=== PATIENT | female | born 1985 | race African-American/Black ===

== ENCOUNTER 2016-09-13 12:34 | Emergency (ER) | payer MEDICARE, MEDICAID ==
[2016-09-13] MEDS ORDERED: Triple Antibiotic Oint 1 GM Packet ONE (13:06)
== END 2016-09-13 13:30 | disposition home or self-care (01) ==
LOC: MADERS 12:34
DX: T24.201A Burn of second degree of unspecified site of right lower limb, except ankle and foot, initial encounter (principal); I10 Essential (primary) hypertension; E10.9 Type 1 diabetes mellitus without complications; Z79.4 Long term (current) use of insulin; Z79.899 Other long term (current) drug therapy; X19.XXXA Contact with other heat and hot substances, initial encounter
CPT/HCPCS: 99283

== ENCOUNTER 2017-06-20 14:56 | Emergency (ER) | payer MEDICARE, MEDICAID ==
[2017-06-20 15:32] LABS: Bilirubin Negative (Negative); Blood, Urine Trace (Negative); Clarity Cloudy (Clear); Glucose, Urine (Dipstick) >=1000 mg/dL (Negative); Leukocyte Negative (Negative); Nitrite Negative (Negative); Protein, Urine (Dipstick) > or equal to 300 mg/dL (Neg-Trace); Urobilinogen 0.2 mg/dL (0.2-1.0)
[2017-06-20 15:41] LABS: RBC/HPF 0-3 HPF (0-3); Squamous Epithelial 21-50 HPF (0-3)
[2017-06-20 15:42] LABS: Bacteria/HPF 3+ HPF (None Seen); Yeast-All Forms 1+ HPF (None Seen)
[2017-06-20] MEDS ORDERED: Ciprofloxacin 500 MG TAB ONE (15:42)
== END 2017-06-20 15:40 | disposition home or self-care (01) ==
LOC: MADERS 14:56
DX: N39.0 Urinary tract infection, site not specified (principal); E10.9 Type 1 diabetes mellitus without complications; I10 Essential (primary) hypertension; Z79.899 Other long term (current) drug therapy
CPT/HCPCS: 81003; 81015; 87077; 87086; 87186; 99283

== ENCOUNTER 2017-07-06 10:35 | Emergency (ER) | payer MEDICARE, MEDICAID ==
[2017-07-06 11:15] LABS: Bilirubin Negative (Negative); Blood, Urine Small (Negative); Glucose, Urine (Dipstick) >=1000 mg/dL (Negative); Leukocyte Negative (Negative); Nitrite Negative (Negative); Protein, Urine (Dipstick) > or equal to 300 mg/dL (Neg-Trace); Specific Gravity, Urine 1.015 (1.005-1.030); Urobilinogen 0.2 mg/dL (0.2-1.0); pH, Urine 5.5 (5.0-9.0)
[2017-07-06 11:24] LABS: Clarity Slightly Cloudy (Clear); RBC/HPF 0-3 HPF (0-3); WBC/HPF 0-3 HPF (0-3)
[2017-07-06 11:25] LABS: Bacteria/HPF 1+ HPF (None Seen); Yeast-All Forms 3+ HPF (None Seen)
[2017-07-06 11:37] LABS: #Basophils 0.1 thou/uL (0.0-0.2); #Eosinphils 0.4 thou/uL (0.0-0.7); #Lymphocytes 1.1 thou/uL (1.20-3.40); #Monocytes 0.5 thou/uL (0.11-0.59); #Neutrophils 3.8 thou/uL (1.40-6.50); %Eosinophils 6.4 % (0.0-10.0); %Lymphocytes 19.2 % (21.0-51.0); %Monocytes 8.6 % (0.0-10.0); %Neutrophils 63.9 % (42.0-75.0); Hemoglobin 11.7 g/dL (12.0-16.0); Mean Corpuscular HGB CONC 32.2 g/dL (32.0-36.0); Mean Corpuscular Hemoglobin 28.6 pg (27.0-31.0); Mean Corpuscular Volume 88.7 fl (81.0-99.0); Mean Platelet Volume 6.5 fL (7.4-10.4); Platelet Count 292 thou/uL (130-400); RBC Distribution Width 14.2 % (11.5-14.5); Red Blood Cell (RBC) Count 4.09 mill/uL (4.20-5.40); White Blood Cell (WBC) Count 5.9 thou/uL (4.8-10.8)
[2017-07-06] MEDS ORDERED: Benzonatate 100 MG CAP ONE (11:38)
[2017-07-06 11:51] LABS: ALT (SGPT) 23 U/L (8-55); AST (SGOT) 15 U/L (5-34); Albumin 3.4 g/dL (3.5-5.0); Alkaline Phosphatase 91 U/L (40-150); Anion Gap 16 mmol/L (10-20); BUN (Urea Nitrogen) 16 mg/dL (7.0-18.7); Bilirubin, Total 0.3 mg/dL (0.2-1.2); Calc. Creatinine Clearance 0 mL/min (70-130); Calcium 9.1 mg/dL (7.8-10.44); Carbon Dioxide 23 mmol/L (22-29); Chloride 102 mmol/L (98-107); Estimated GFR-MDRD 42; Globulin 3.9 g/dL (2.4-3.5); Glucose 423 mg/dL (70-105); Protein, Total 7.3 g/dL (6.0-8.3); Sodium 137 mmol/L (136-145)
== END 2017-07-06 12:03 | disposition home or self-care (01) ==
LOC: MADERS 10:35
DX: J06.9 Acute upper respiratory infection, unspecified (principal); E10.22 Type 1 diabetes mellitus with diabetic chronic kidney disease; N18.9 Chronic kidney disease, unspecified; Z79.4 Long term (current) use of insulin; Z79.899 Other long term (current) drug therapy
CPT/HCPCS: 36416; 80053; 81003; 81015; 85025; 99284

== ENCOUNTER 2017-07-07 11:33 | Emergency (ER) | payer MEDICARE, MEDICAID ==
[2017-07-07] MEDS ORDERED: Silver Sulfadiazine 1% Cream 50 GM JAR ONE (11:49)
== END 2017-07-07 12:05 | disposition home or self-care (01) ==
LOC: MADERS 11:33
DX: T24.201A Burn of second degree of unspecified site of right lower limb, except ankle and foot, initial encounter (principal); E10.9 Type 1 diabetes mellitus without complications; I10 Essential (primary) hypertension; X08.8XXA Exposure to other specified smoke, fire and flames, initial encounter
CPT/HCPCS: 99283

== ENCOUNTER 2017-09-04 08:29 | Emergency (ER) | payer MEDICARE, MEDICAID ==
[2017-09-04] MEDS ORDERED: Labetalol HCl 100 MG/20 ML VIAL ONE (09:05)
[2017-09-04 09:49] LABS: Hemoglobin 10.6 g/dL (12.0-16.0); Mean Corpuscular HGB CONC 32.3 g/dL (32.0-36.0); Mean Corpuscular Hemoglobin 28.2 pg (27.0-31.0); Mean Corpuscular Volume 87.4 fL (81.0-99.0); RBC Distribution Width 13.6 % (11.5-14.5); Red Blood Cell (RBC) Count 3.77 mill/uL (4.20-5.40); White Blood Cell (WBC) Count 8.5 thou/uL (4.8-10.8)
[2017-09-04 09:50] LABS: #Basophils 0.1 thou/uL (0.0-0.2); #Eosinphils 0.1 thou/uL (0.0-0.7); #Lymphocytes 1.1 thou/uL (1.20-3.40); #Monocytes 0.3 thou/uL (0.11-0.59); %Basophils 0.6 % (0.0-1.0); %Eosinophils 0.8 % (0.0-10.0); %Lymphocytes 12.5 % (21.0-51.0); %Monocytes 3.2 % (0.0-10.0); %Neutrophils 82.9 % (42.0-75.0); Platelet Count 295 thou/uL (130-400)
[2017-09-04 09:56] LABS: ALT (SGPT) 16 U/L (8-55); AST (SGOT) 16 U/L (5-34); Albumin 3.5 g/dL (3.5-5.0); Alkaline Phosphatase 76 U/L (40-150); Anion Gap 16 mmol/L (10-20); BUN (Urea Nitrogen) 18 mg/dL (7.0-18.7); Bilirubin, Total 0.3 mg/dL (0.2-1.2); Calc. Creatinine Clearance 0 mL/min (70-130); Carbon Dioxide 22 mmol/L (22-29); Chloride 105 mmol/L (98-107); Estimated GFR-MDRD 47; Globulin 3.5 g/dL (2.4-3.5); Glucose 173 mg/dL (70-105); Potassium 3.5 mmol/L (3.5-5.1); Sodium 139 mmol/L (136-145)
[2017-09-04 10:16] LABS: Bilirubin Negative (Negative); Blood, Urine Trace (Negative); Clarity Slightly Cloudy (Clear); Glucose, Urine (Dipstick) 500 mg/dL (Negative); Leukocyte Negative (Negative); Nitrite Negative (Negative); Protein, Urine (Dipstick) > or equal to 300 mg/dL (Neg-Trace); RBC/HPF 0-3 HPF (0-3); Urobilinogen 0.2 mg/dL (0.2-1.0)
[2017-09-04 10:17] LABS: Bacteria/HPF 2+ HPF (None Seen)
== END 2017-09-04 12:15 | disposition home or self-care (01) ==
LOC: MADERS 08:29
DX: E10.649 Type 1 diabetes mellitus with hypoglycemia without coma (principal); I10 Essential (primary) hypertension
CPT/HCPCS: 36416; 80053; 81001; 85025; 87086; 96374; 96375; 36415-59; J1610

== ENCOUNTER → 2017-10-26 | Emergency (ER) | payer MEDICARE, MEDICAID ==
[~2017-10-26] MED LIST: Phenazopyridine HCl 97.5 MG TABLET ONE; Sulfameth/Trimethoprim DS 800-160mg TAB ONE
[2017-10-26 09:55] LABS: Bilirubin Negative (Negative); Blood, Urine Moderate (Negative); Clarity Cloudy (Clear); Glucose, Urine (Dipstick) 500 mg/dL (Negative); Leukocyte Small (Negative); Nitrite Negative (Negative); Protein, Urine (Dipstick) > or equal to 300 mg/dL (Neg-Trace); Urobilinogen 0.2 mg/dL (0.2-1.0); pH, Urine 5.5 (5.0-9.0)
[2017-10-26 10:00] LABS: Pregnancy Test - Urine (BHCG) Negative (Negative); Pregu Control Background? CLEAR/WHITE (CLR/WHITE); Pregu Control Bar Appear? YES (CONTROL BAR)
[2017-10-26 10:05] LABS: Bacteria/HPF 2+ HPF (None Seen)
== END ==
LOC: MADERS 09:03
DX: N39.0 Urinary tract infection, site not specified (principal); E10.9 Type 1 diabetes mellitus without complications; I10 Essential (primary) hypertension; Z79.899 Other long term (current) drug therapy
CPT/HCPCS: 81001; 81025; 87077; 87086; 87186; 99283

== ENCOUNTER 2018-02-03 14:30 | Emergency (ER) | payer MEDICARE, MEDICAID ==
[2018-02-03] MEDS ORDERED: Lisinopril 10 MG TAB ONE (14:57)
== END 2018-02-03 15:04 | disposition home or self-care (01) ==
LOC: MADERS 14:30
DX: E10.40 Type 1 diabetes mellitus with diabetic neuropathy, unspecified (principal); G62.9 Polyneuropathy, unspecified; I10 Essential (primary) hypertension; Z79.4 Long term (current) use of insulin; Z79.891 Long term (current) use of opiate analgesic
CPT/HCPCS: 99283

== ENCOUNTER 2018-03-19 12:51 | Emergency (ER) | payer MEDICARE, MEDICAID | END 2018-03-19 13:19 | disposition home or self-care (01) | LOC: MADERS 12:51 | DX: S93.401A Sprain of unspecified ligament of right ankle, initial encounter (principal); I10 Essential (primary) hypertension; E10.40 Type 1 diabetes mellitus with diabetic neuropathy, unspecified; Z79.899 Other long term (current) drug therapy; X58.XXXA Exposure to other specified factors, initial encounter | CPT/HCPCS: 99283 ==

== ENCOUNTER 2018-04-18 18:15 | Emergency (ER) | payer MEDICARE, MEDICAID ==
[2018-04-18] MEDS ORDERED: cloNIDine 0.1 MG TAB ONE (18:57)
== END 2018-04-18 20:02 | disposition home or self-care (01) ==
LOC: MADERS 18:15
DX: I10 Essential (primary) hypertension (principal); E10.9 Type 1 diabetes mellitus without complications; Z79.899 Other long term (current) drug therapy
CPT/HCPCS: 99283

== ENCOUNTER 2018-10-26 13:48 | Emergency (ER) | payer MEDICARE, OTHER ==
[2018-10-26] MEDS ORDERED: Ibuprofen 600 MG TAB ONE (14:07)
== END 2018-10-26 15:10 | disposition home or self-care (01) ==
LOC: MADERS 13:48
DX: B34.9 Viral infection, unspecified (principal); E10.65 Type 1 diabetes mellitus with hyperglycemia; I10 Essential (primary) hypertension; Z79.899 Other long term (current) drug therapy
CPT/HCPCS: 36416; 87804; 99283

== ENCOUNTER 2018-11-06 21:28 | Emergency (ER) | payer MEDICARE, OTHER ==
[2018-11-06] MEDS ORDERED: cloNIDine 0.1 MG TAB ONE (21:52)
[2018-11-06 22:17] LABS: Bilirubin Negative (Negative); Blood, Urine Small (Negative); Clarity Cloudy (Clear); Glucose, Urine (Dipstick) 250 mg/dL (Negative); Leukocyte Moderate (Negative); Nitrite Negative (Negative); Protein, Urine (Dipstick) > or equal to 300 mg/dL (Neg-Trace); Urobilinogen 0.2 mg/dL (0.2-1.0)
[2018-11-06 22:18] LABS: ALT (SGPT) 26 U/L (8-55); AST (SGOT) 26 U/L (5-34); Albumin 3.7 g/dL (3.5-5.0); Alkaline Phosphatase 96 U/L (40-150); Anion Gap 14 mmol/L (10-20); BUN (Urea Nitrogen) 19 mg/dL (7.0-18.7); Bilirubin, Total 0.3 mg/dL (0.2-1.2); Calc. Creatinine Clearance 0 mL/min (70-130); Calcium 9.2 mg/dL (7.8-10.44); Carbon Dioxide 24 mmol/L (22-29); Chloride 106 mmol/L (98-107); Estimated GFR-MDRD 30; Globulin 3.4 g/dL (2.4-3.5); Glucose 160 mg/dL (70-105); Potassium 4.4 mmol/L (3.5-5.1); Protein, Total 7.1 g/dL (6.0-8.3); Sodium 140 mmol/L (136-145)
[2018-11-06 22:18] LABS: Pregnancy Test - Urine (BHCG) Negative (Negative); Pregu Control Background? CLEAR/WHITE (CLR/WHITE); Pregu Control Bar Appear? YES (CONTROL BAR)
[2018-11-06 22:20] LABS: #Basophils 0.1 thou/uL (0.0-0.2); #Eosinphils 0.5 thou/uL (0.0-0.7); #Lymphocytes 2.1 thou/uL (1.20-3.40); #Monocytes 0.8 thou/uL (0.11-0.59); #Neutrophils 5.2 thou/uL (1.40-6.50); %Eosinophils 5.4 % (0.0-10.0); %Lymphocytes 24.4 % (21.0-51.0); %Monocytes 9.1 % (0.0-10.0); %Neutrophils 60.2 % (42.0-75.0); Hemoglobin 9.1 g/dL (12.0-16.0); Hypochromia SLIGHT = 6-15 cells (100X) (0-5/hpf); MDiff Complete? YES; Mean Corpuscular HGB CONC 31.4 g/dL (32.0-36.0); Mean Corpuscular Hemoglobin 24.6 pg (27.0-31.0); Mean Corpuscular Volume 78.3 fL (78.0-98.0); Microcytosis SLIGHT = 6-15 cells (100X) (0-5/hpf); Platelet Count 278 thou/uL (130-400); Platelet Morphology Comment Appears Adequate; RBC Distribution Width 18.3 % (11.5-14.5); RBC Morphology Abnormal; Red Blood Cell (RBC) Count 3.69 mill/uL (4.20-5.40); White Blood Cell (WBC) Count 8.6 thou/uL (4.8-10.8)
[2018-11-06 22:22] LABS: Bacteria/HPF 4+ HPF (None Seen)
== END 2018-11-06 22:51 | disposition home or self-care (01) ==
LOC: MADERS 21:28
DX: I10 Essential (primary) hypertension (principal); D63.1 Anemia in chronic kidney disease; E10.22 Type 1 diabetes mellitus with diabetic chronic kidney disease; E10.40 Type 1 diabetes mellitus with diabetic neuropathy, unspecified; Z79.899 Other long term (current) drug therapy
CPT/HCPCS: 36415; 80053; 81003; 81015; 81025; 85025; 99283

== ENCOUNTER 2018-11-22 13:16 | Outpatient (CLI) | payer MEDICARE, OTHER ==
[2018-11-22 21:51] LABS: Creatinine, Urine 38.23 mg/dL (47-110)
[2018-11-24 15:14] LABS: Kappa Lambda Light Chain Ratio 1.59 (0.26-1.65); Kappa Light Chains 56.7 mg/L (3.3-19.4); Lambda Light Chain 35.7 mg/L (5.7-26.3)
== END 2018-11-22 13:17 | disposition home or self-care (01) ==
LOC: MADLAB 13:16
PROVIDERS: ATTEND Internal Medicine
DX: R80.1 Persistent proteinuria, unspecified (principal)
CPT/HCPCS: 36415; 82570; 83883; 84156; 86334; 86335

== ENCOUNTER 2019-03-01 17:18 | Emergency (ER) | payer MEDICARE, OTHER ==
[2019-03-01 17:59] LABS: Bilirubin Negative (Negative); Blood, Urine Trace (Negative); Clarity Slightly Cloudy (Clear); Glucose, Urine (Dipstick) 100 mg/dL (Negative); Leukocyte Negative (Negative); Nitrite Positive (Negative); Protein, Urine (Dipstick) > or equal to 300 mg/dL (Neg-Trace); Urobilinogen 0.2 mg/dL (Less than 2)
[2019-03-01 18:04] LABS: Bacteria/HPF 2+ HPF (None Seen)
[2019-03-01 18:05] LABS: Pregnancy Test - Urine (BHCG) Negative (Negative); Pregu Control Background? CLEAR/WHITE (CLR/WHITE); Pregu Control Bar Appear? YES (CONTROL BAR); Specific Gravity 1.015 (1.002-1.036)
== END 2019-03-01 18:42 | disposition home or self-care (01) ==
LOC: MADERS 17:18
DX: N30.00 Acute cystitis without hematuria (principal); I10 Essential (primary) hypertension; E13.9 Other specified diabetes mellitus without complications; Z79.4 Long term (current) use of insulin; Z79.899 Other long term (current) drug therapy
CPT/HCPCS: 81003; 81015; 81025; 99283

== ENCOUNTER 2019-07-12 08:58 | Emergency (ER) | payer MEDICARE, OTHER ==
[2019-07-12] MEDS ORDERED: Ibuprofen 600 MG TAB ONE (09:27)
== END 2019-07-12 09:40 | disposition home or self-care (01) ==
LOC: MADERS 08:58
DX: S00.411A Abrasion of right ear, initial encounter (principal); J06.9 Acute upper respiratory infection, unspecified; I10 Essential (primary) hypertension; E13.40 Other specified diabetes mellitus with diabetic neuropathy, unspecified; Z79.4 Long term (current) use of insulin; X58.XXXA Exposure to other specified factors, initial encounter
CPT/HCPCS: 99282

== ENCOUNTER 2019-07-13 14:59 | Emergency (ER) | payer MEDICARE, OTHER | END 2019-07-13 16:04 | disposition home or self-care (01) | LOC: MADERS 14:59 | DX: J06.9 Acute upper respiratory infection, unspecified (principal); M79.10 Myalgia, unspecified site; I10 Essential (primary) hypertension; E11.40 Type 2 diabetes mellitus with diabetic neuropathy, unspecified; Z79.4 Long term (current) use of insulin; Z79.899 Other long term (current) drug therapy | CPT/HCPCS: 99281 ==

== ENCOUNTER 2019-07-25 13:45 | Emergency (ER) | payer MEDICARE, OTHER ==
[2019-07-25] MEDS ORDERED: Dexamethasone 4 MG TAB ONE (15:58)
== END 2019-07-25 16:06 | disposition home or self-care (01) ==
LOC: MADERS 13:45
DX: J02.9 Acute pharyngitis, unspecified (principal); I10 Essential (primary) hypertension; E11.40 Type 2 diabetes mellitus with diabetic neuropathy, unspecified; Z79.4 Long term (current) use of insulin; Z79.899 Other long term (current) drug therapy
CPT/HCPCS: 36416; 87081; 87430; 99283; J8540

== ENCOUNTER 2019-08-13 12:10 | Emergency (ER) | payer MEDICARE, OTHER | END 2019-08-13 13:30 | disposition left against medical advice (07) | LOC: MADERS 12:10 | DX: Z53.21 Procedure and treatment not carried out due to patient leaving prior to being seen by health care provider (principal) ==

== ENCOUNTER 2019-08-21 11:21 | Emergency (ER) | payer MEDICARE, OTHER | END 2019-08-21 12:15 | disposition home or self-care (01) | LOC: MADERS 11:21 | DX: S90.821A Blister (nonthermal), right foot, initial encounter (principal); E11.9 Type 2 diabetes mellitus without complications; I10 Essential (primary) hypertension; Z79.4 Long term (current) use of insulin; Z79.899 Other long term (current) drug therapy | CPT/HCPCS: 99283 ==

== ENCOUNTER 2019-09-13 14:38 | Emergency (ER) | payer MEDICARE, OTHER ==
[2019-09-13] MEDS ORDERED: cloNIDine 0.1mg/24 Hour PATCH ONE (15:04)
[2019-09-13] MEDS ORDERED: Gabapentin 100 MG CAP ONE (15:04)
[2019-09-13] MEDS ORDERED: cloNIDine 0.1 MG TAB ONE (15:05)
== END 2019-09-13 15:25 | disposition home or self-care (01) ==
LOC: MADERS 14:38
DX: G62.9 Polyneuropathy, unspecified (principal); I10 Essential (primary) hypertension; E11.9 Type 2 diabetes mellitus without complications; Z79.4 Long term (current) use of insulin; Z79.899 Other long term (current) drug therapy
CPT/HCPCS: 99283

== ENCOUNTER 2019-11-13 21:32 | Emergency (ER) | payer MEDICARE, OTHER | END 2019-11-13 22:13 | disposition home or self-care (01) | LOC: MADERS 21:32 | DX: S91.211A Laceration without foreign body of right great toe with damage to nail, initial encounter (principal); I10 Essential (primary) hypertension; E11.40 Type 2 diabetes mellitus with diabetic neuropathy, unspecified; Z79.4 Long term (current) use of insulin; Z79.899 Other long term (current) drug therapy; X58.XXXA Exposure to other specified factors, initial encounter | CPT/HCPCS: 99283 ==

== ENCOUNTER 2019-12-09 13:16 | Emergency (ER) | payer MEDICARE, OTHER ==
[2019-12-09 14:52] LABS: Bilirubin Negative (Negative); Blood, Urine Moderate (Negative); Clarity Slightly Cloudy (Clear); Glucose, Urine (Dipstick) 500 mg/dL (Negative); Leukocyte Small (Negative); Nitrite Negative (Negative); Protein, Urine (Dipstick) > or equal to 300 mg/dL (Neg-Trace); Urobilinogen 0.2 mg/dL (Less than 2)
[2019-12-09 14:55] LABS: Bacteria/HPF 4+ HPF (None Seen); Squamous Epithelial 0-3 HPF (0-3); WBC/HPF Greater Than 50 HPF (0-3)
[2019-12-09] MEDS ORDERED: Lidocaine 1% 20 ML MDV ONE (15:15)
[2019-12-09] MEDS ORDERED: cefTRIAXone\\ROCEPHIN 1 GM VIAL ONE (15:15)
[2019-12-09] MEDS ORDERED: HYDROcodone/Acetaminophen 5/325 mg Tablet ONE (15:41)
[2019-12-09] MEDS ORDERED: Ondansetron ODT 4 MG TAB ONE (15:46)
== END 2019-12-09 15:51 | disposition home or self-care (01) ==
LOC: MADERS 13:16
DX: N10 Acute pyelonephritis (principal); E11.40 Type 2 diabetes mellitus with diabetic neuropathy, unspecified; I10 Essential (primary) hypertension; Z79.899 Other long term (current) drug therapy; Z79.4 Long term (current) use of insulin
CPT/HCPCS: 51701; 81003; 81015; 87077; 87086; 87186; 96372; J0696; J2001; Q0162

== ENCOUNTER 2019-12-26 11:39 | Emergency (ER) | payer MEDICARE, OTHER ==
[2019-12-26] MEDS ORDERED: Triple Antibiotic Oint 1 GM Packet ONE (12:27)
[2019-12-26] MEDS ORDERED: cloNIDine 0.1mg/24 Hour PATCH ONE (12:40)
[2019-12-26] MEDS ORDERED: cloNIDine 0.1 MG TAB ONE (12:41)
== END 2019-12-26 12:50 | disposition home or self-care (01) ==
LOC: MADERS 11:39
DX: S91.201A Unspecified open wound of right great toe with damage to nail, initial encounter (principal); B35.1 Tinea unguium; I10 Essential (primary) hypertension; K21.9 Gastro-esophageal reflux disease without esophagitis; E11.40 Type 2 diabetes mellitus with diabetic neuropathy, unspecified; Z79.1 Long term (current) use of non-steroidal anti-inflammatories (NSAID); Z79.899 Other long term (current) drug therapy; Z79.4 Long term (current) use of insulin; X58.XXXA Exposure to other specified factors, initial encounter
CPT/HCPCS: 11730

== ENCOUNTER 2020-02-14 17:28 | Emergency (ER) | payer MEDICARE, OTHER ==
[2020-02-14] MEDS ORDERED: Acetaminophen 500 MG TAB ONE (18:09)
[2020-02-14] MEDS ORDERED: Sodium Chloride 0.9% 250 ML 250 ML ONE (18:41)
== END 2020-02-14 19:05 | disposition home or self-care (01) ==
LOC: MADERS 17:28
DX: H60.92 Unspecified otitis externa, left ear (principal); H61.22 Impacted cerumen, left ear; J06.9 Acute upper respiratory infection, unspecified; K21.9 Gastro-esophageal reflux disease without esophagitis; E11.40 Type 2 diabetes mellitus with diabetic neuropathy, unspecified; Z79.4 Long term (current) use of insulin; Z79.899 Other long term (current) drug therapy
CPT/HCPCS: 69210; J7050

== ENCOUNTER 2020-03-20 21:09 | Emergency (ER) | payer MEDICARE, OTHER ==
[2020-03-20] MEDS ORDERED: Ondansetron PF 4 MG/2 ML Vial ONE (21:59)
[2020-03-20] MEDS ORDERED: Sodium Chloride 0.9% 1,000 ML ONE (21:59)
[2020-03-20 22:14] LABS: BHCG - Serum Negative (NEGATIVE); Pregs Control Background? CLEAR/WHITE (CLR/WHITE); Pregs Control Bar Appear? YES (CONTROL BAR)
[2020-03-20 22:20] LABS: ALT (SGPT) 11 U/L (8-55); AST (SGOT) 14 U/L (5-34); Albumin 3.7 g/dL (3.5-5.0); Alkaline Phosphatase 98 U/L (40-110); Anion Gap 16 mmol/L (10-20); BUN (Urea Nitrogen) 23 mg/dL (7.0-18.7); Bilirubin, Total 0.2 mg/dL (0.2-1.2); Calc. Creatinine Clearance 0 mL/min (70-130); Carbon Dioxide 21 mmol/L (22-29); Chloride 105 mmol/L (98-107); Estimated GFR-MDRD 20; Globulin 3.5 g/dL (2.4-3.5); Glucose 163 mg/dL (70-105); Lipase 38 U/L (8-78); Potassium 3.8 mmol/L (3.5-5.1); Protein, Total 7.2 g/dL (6.0-8.3); Sodium 138 mmol/L (136-145)
[2020-03-20 22:23] LABS: Eosinophils 2 % (0-10); Hemoglobin 12.2 g/dL (12.0-16.0); Lymphocytes 32 % (21-51); MDiff Complete? YES; Mean Corpuscular HGB CONC 31.3 g/dL (32.0-36.0); Mean Corpuscular Volume 86.3 fL (78.0-98.0); Mean Platelet Volume 6.1 fL (7.4-10.4); Monocytes 5 % (0-10); Neutrophil 61 % (42-75); Platelet Count 317 thou/uL (130-400); Platelet Morphology Comment Appears Adequate; RBC Distribution Width 13.9 % (11.5-14.5); Red Blood Cell (RBC) Count 4.51 mill/uL (4.20-5.40); White Blood Cell (WBC) Count 8.3 thou/uL (4.8-10.8)
[2020-03-20 23:47] LABS: Bilirubin Negative (Negative); Blood, Urine Trace (Negative); Clarity Slightly Cloudy (Clear); Glucose, Urine (Dipstick) 500 mg/dL (Negative); Ketone, Urine Negative (Negative); Leukocyte Negative (Negative); Nitrite Negative (Negative); Protein, Urine (Dipstick) > or equal to 300 mg/dL (Neg-Trace); Specific Gravity, Urine 1.025 (1.005-1.030); Urobilinogen 0.2 mg/dL (Less than 2); pH, Urine 6.5 (5.0-9.0)
[2020-03-20 23:52] LABS: Bacteria/HPF 1+ HPF (None Seen); RBC/HPF 0-3 HPF (0-3)
[2020-03-21 00:54] LABS: Base Excess-Venous 2.1 mmol/L (-2.0 to 3.0); Bicarbonate (HCO3v) 27.2 mmol/L (22.0-28.0); CO2 Tension (PvCO2) 43.1 mmHg (40.0-50.0)
[2020-03-21 00:55] LABS: Chloride 106 mmol/L (98-107); Hemoglobin - Calc 15.3 g/dL (12.0-16.0); Potassium 3.8 mmol/L (3.5-5.1); Sodium 143 mmol/L (138-145); T. Carbon Dioxide 28.5 mmol/L (22.0-28.0)
[2020-03-21 00:56] LABS: Calcium, Ionized 1.12 mmol/L (See Comments:)
== END 2020-03-21 00:05 | disposition home or self-care (01) ==
LOC: MADERS 21:09
DX: K52.9 Noninfective gastroenteritis and colitis, unspecified (principal); E11.22 Type 2 diabetes mellitus with diabetic chronic kidney disease; I12.9 Hypertensive chronic kidney disease with stage 1 through stage 4 chronic kidney disease, or unspecified chronic kidney disease; N18.9 Chronic kidney disease, unspecified; K21.9 Gastro-esophageal reflux disease without esophagitis; E11.40 Type 2 diabetes mellitus with diabetic neuropathy, unspecified; Z79.4 Long term (current) use of insulin
CPT/HCPCS: 80053; 81003; 81015; 82010; 82330; 82803; 83605; 83690; 84703; 85025; 96361; 96374; J2405; J7050

== ENCOUNTER 2020-05-27 08:22 | Emergency (ER) | payer MEDICARE, OTHER ==
[2020-05-27] MEDS ORDERED: Ketorolac Tromethamine 30 MG/ML VIAL ONE (08:42)
--- NOTE | 2020-05-27 09:04 | RAD ---
2 VIEW CHEST: Date: 05/27/2020 HISTORY: Decreased breath sounds. Abnormal auscultation. COMPARISON: 01/20/2008. FINDINGS: Lungs appear clear. No infiltrate identified. Heart and mediastinum unremarkable. IMPRESSION: No acute process identified. POS: [facility]
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
== END 2020-05-27 09:30 | disposition home or self-care (01) ==
LOC: MADERS 08:22
DX: S13.9XXA Sprain of joints and ligaments of unspecified parts of neck, initial encounter (principal); S00.93XA Contusion of unspecified part of head, initial encounter; I10 Essential (primary) hypertension; K21.9 Gastro-esophageal reflux disease without esophagitis; E11.40 Type 2 diabetes mellitus with diabetic neuropathy, unspecified; Z79.4 Long term (current) use of insulin; V89.2XXA Person injured in unspecified motor-vehicle accident, traffic, initial encounter
CPT/HCPCS: 70450; 71046; 72125; 96374; J1885

== ENCOUNTER 2020-07-31 16:09 | Emergency (ER) | payer MEDICARE, OTHER | END 2020-07-31 17:40 | disposition home or self-care (01) | LOC: MADERS 16:09 | DX: I10 Essential (primary) hypertension (principal); K21.9 Gastro-esophageal reflux disease without esophagitis; E11.40 Type 2 diabetes mellitus with diabetic neuropathy, unspecified; Z79.4 Long term (current) use of insulin; Z79.899 Other long term (current) drug therapy | CPT/HCPCS: 36416; 99283 ==

== ENCOUNTER 2020-08-21 12:47 | Emergency (ER) | payer MEDICARE, OTHER ==
[2020-08-21] MEDS ORDERED: Acetaminophen 500 MG TAB ONE (13:55)
== END 2020-08-21 14:00 | disposition home or self-care (01) ==
LOC: MADERS 12:47
DX: M79.10 Myalgia, unspecified site (principal); I10 Essential (primary) hypertension; K21.9 Gastro-esophageal reflux disease without esophagitis; E11.40 Type 2 diabetes mellitus with diabetic neuropathy, unspecified; Z79.4 Long term (current) use of insulin; Z79.899 Other long term (current) drug therapy
CPT/HCPCS: 99283

== ENCOUNTER 2020-08-31 08:13 | Emergency (ER) | payer MEDICARE, OTHER ==
[2020-08-31] MEDS ORDERED: cloNIDine 0.1 MG TAB ONE (08:46)
[2020-08-31 09:11] LABS: Bilirubin Negative (Negative); Blood, Urine Small (Negative); Clarity Slightly Cloudy (Clear); Glucose, Urine (Dipstick) 250 mg/dL (Negative); Ketone, Urine Negative (Negative); Leukocyte Small (Negative); Nitrite Negative (Negative); Protein, Urine (Dipstick) > or equal to 300 mg/dL (Neg-Trace); Urobilinogen 0.2 mg/dL (Less than 2)
[2020-08-31 09:23] LABS: Bacteria/HPF 1+ HPF (None Seen); RBC/HPF 0-3 HPF (0-3); Trichomonas/HPF 1+ HPF (None Seen); WBC/HPF 0-3 HPF (0-3)
[2020-08-31 09:28] LABS: #Basophils 0.1 thou/uL (0.0-0.2); #Eosinphils 0.1 thou/uL (0.0-0.7); #Lymphocytes 1.2 thou/uL (1.20-3.40); #Monocytes 0.2 thou/uL (0.11-0.59); #Neutrophils 4.9 thou/uL (1.40-6.50); %Eosinophils 1.7 % (0.0-10.0); %Lymphocytes 18.5 % (21.0-51.0); %Monocytes 3.6 % (0.0-10.0); %Neutrophils 75.2 % (42.0-75.0); Hemoglobin 10.5 g/dL (12.0-16.0); Mean Corpuscular HGB CONC 31.1 g/dL (32.0-36.0); Mean Corpuscular Volume 86.9 fL (78.0-98.0); Platelet Count 278 thou/uL (130-400); RBC Distribution Width 13.7 % (11.5-14.5); Red Blood Cell (RBC) Count 3.89 mill/uL (4.20-5.40); White Blood Cell (WBC) Count 6.6 thou/uL (4.8-10.8)
[2020-08-31 09:42] LABS: ALT (SGPT) Less than 7 U/L (8-55); AST (SGOT) 7 U/L (5-34); Alkaline Phosphatase 127 U/L (40-110); Anion Gap 13 mmol/L (10-20); BUN (Urea Nitrogen) 23 mg/dL (7.0-18.7); Bilirubin, Total 0.2 mg/dL (0.2-1.2); Calc. Creatinine Clearance 0 mL/min (70-130); Carbon Dioxide 24 mmol/L (22-29); Chloride 106 mmol/L (98-107); Globulin 3.5 g/dL (2.4-3.5); Glucose 150 mg/dL (70-105); Magnesium 2.2 mg/dL (1.6-2.6); Potassium 4.1 mmol/L (3.5-5.1); Protein, Total 7.5 g/dL (6.0-8.3); Sodium 139 mmol/L (136-145)
[2020-08-31] MEDS ORDERED: Amlodipine 5 MG TAB ONE (09:56)
== END 2020-08-31 10:54 | disposition home or self-care (01) ==
LOC: MADERS 08:13
DX: E11.649 Type 2 diabetes mellitus with hypoglycemia without coma (principal); I10 Essential (primary) hypertension; E11.40 Type 2 diabetes mellitus with diabetic neuropathy, unspecified; Z79.4 Long term (current) use of insulin; Z79.899 Other long term (current) drug therapy
CPT/HCPCS: 36415; 80053; 81003; 81015; 83605; 83690; 83735; 85025; 99285

== ENCOUNTER 2020-09-03 15:50 | Emergency (ER) | payer MEDICARE, OTHER ==
[2020-09-03] MEDS ORDERED: Sodium Chloride 0.9% 1,000 ML ONE (17:01)
[2020-09-03 17:19] LABS: #Basophils 0.1 thou/uL (0.0-0.2); #Eosinphils 0.4 thou/uL (0.0-0.7); #Lymphocytes 2.2 thou/uL (1.20-3.40); #Monocytes 0.4 thou/uL (0.11-0.59); %Basophils 1.3 % (0.0-1.0); %Eosinophils 5.4 % (0.0-10.0); %Monocytes 5.5 % (0.0-10.0); %Neutrophils 56.8 % (42.0-75.0); Hemoglobin 9.7 g/dL (12.0-16.0); Mean Corpuscular HGB CONC 31.3 g/dL (32.0-36.0); Mean Corpuscular Volume 86.3 fL (78.0-98.0); Mean Platelet Volume 6.5 fL (7.4-10.4); Platelet Count 247 thou/uL (130-400); RBC Distribution Width 13.2 % (11.5-14.5); Red Blood Cell (RBC) Count 3.58 mill/uL (4.20-5.40)
[2020-09-03 17:31] LABS: Anion Gap 12 mmol/L (10-20); BHCG - Serum Negative (NEGATIVE); BUN (Urea Nitrogen) 35 mg/dL (7.0-18.7); Calc. Creatinine Clearance 0 mL/min (70-130); Calcium 8.8 mg/dL (7.8-10.44); Carbon Dioxide 25 mmol/L (22-29); Chloride 107 mmol/L (98-107); Glucose 109 mg/dL (70-105); Potassium 4.1 mmol/L (3.5-5.1); Pregs Control Background? CLEAR/WHITE (CLR/WHITE); Pregs Control Bar Appear? YES (CONTROL BAR); Sodium 140 mmol/L (136-145)
== END 2020-09-03 18:28 | disposition home or self-care (01) ==
LOC: MADERS 15:50
DX: E86.0 Dehydration (principal); R53.83 Other fatigue; K21.9 Gastro-esophageal reflux disease without esophagitis; I10 Essential (primary) hypertension; E11.40 Type 2 diabetes mellitus with diabetic neuropathy, unspecified; Z79.4 Long term (current) use of insulin
CPT/HCPCS: 36416; 80048; 84703; 85025; 99284; J7050

== ENCOUNTER 2020-09-26 03:23 | Emergency (ER) | payer MEDICARE, OTHER ==
[2020-09-26] MEDS ORDERED: cloNIDine 0.1 MG TAB ONE (03:54)
== END 2020-09-26 04:45 | disposition home or self-care (01) ==
LOC: MADERS 03:23
DX: E11.649 Type 2 diabetes mellitus with hypoglycemia without coma (principal); I10 Essential (primary) hypertension; K21.9 Gastro-esophageal reflux disease without esophagitis; Z79.4 Long term (current) use of insulin
CPT/HCPCS: 36416; 99284

== ENCOUNTER 2021-05-26 17:16 | Emergency (ER) | payer MEDICARE, MEDICAID ==
[2021-05-26] MEDS ORDERED: Metoprolol Tartrate 50 MG TAB ONE (17:46)
[2021-05-26] MEDS ORDERED: Ondansetron PF 4 MG/2 ML Vial ONE (17:46)
[2021-05-26] MEDS ORDERED: Lactated Ringer's 1,000 ML ONE ×2 (17:46→19:18)
[2021-05-26 17:56] LABS: #Basophils 0.1 thou/uL (0.0-0.2); #Eosinphils 0.1 thou/uL (0.0-0.7); #Lymphocytes 1.1 thou/uL (1.20-3.40); #Monocytes 0.3 thou/uL (0.11-0.59); #Neutrophils 5.2 thou/uL (1.40-6.50); %Eosinophils 1.3 % (0.0-10.0); %Lymphocytes 16.3 % (21.0-51.0); %Monocytes 4.3 % (0.0-10.0); %Neutrophils 77.1 % (42.0-75.0); Hemoglobin 9.5 g/dL (12.0-16.0); Mean Corpuscular HGB CONC 30.2 g/dL (32.0-36.0); Mean Corpuscular Volume 86.2 fL (78.0-98.0); Mean Platelet Volume 5.9 fL (7.4-10.4); Platelet Count 275 thou/uL (130-400); RBC Distribution Width 15.2 % (11.5-14.5); Red Blood Cell (RBC) Count 3.66 mill/uL (4.20-5.40); White Blood Cell (WBC) Count 6.7 thou/uL (4.8-10.8)
[2021-05-26 18:18] LABS: ALT (SGPT) 8 U/L (8-55); AST (SGOT) 8 U/L (5-34); Albumin 4.1 g/dL (3.5-5.0); Alkaline Phosphatase 82 U/L (40-110); Anion Gap 15 mmol/L (10-20); BUN (Urea Nitrogen) 36 mg/dL (7.0-18.7); Bilirubin, Total 0.4 mg/dL (0.2-1.2); Calc. Creatinine Clearance 0 mL/min (70-130); Calcium 9.4 mg/dL (7.8-10.44); Carbon Dioxide 24 mmol/L (22-29); Chloride 103 mmol/L (98-107); Globulin 3.7 g/dL (2.4-3.5); Glucose 352 mg/dL (70-105); Lipase 42 U/L (8-78); Protein, Total 7.8 g/dL (6.0-8.3); Sodium 138 mmol/L (136-145)
[2021-05-26 18:23] LABS: Base Excess-Venous -2.1 mmol/L (-2.0 to 3.0); Bicarbonate (HCO3v) 24.6 mmol/L (22.0-28.0); CO2 Tension (PvCO2) 49.8 mmHg (42.0-51.0); Calcium, Ionized 1.21 mmol/L (1.15-1.33); Chloride 106 mmol/L (98-107); Hemoglobin - Calc 10.6 g/dL (12.0-16.0); Sodium 138 mmol/L (138-145); T. Carbon Dioxide 26.1 mmol/L (22.0-28.0); vO2 Saturation-calc 83.4 % (60.0-85.0)
[2021-05-26 18:23] LABS: BHCG - Serum Negative (NEGATIVE); Pregs Control Background? CLEAR/WHITE (CLR/WHITE); Pregs Control Bar Appear? YES (CONTROL BAR)
[2021-05-26] MEDS ORDERED: cloNIDine 0.1mg/24 Hour PATCH ONE (19:18)
[2021-05-26] MEDS ORDERED: cloNIDine 0.1 MG TAB ONE (19:19)
[2021-05-26] MEDS ORDERED: Insulin Regular 300 UNITS/3 ML VIAL ONE (21:31)
[2021-05-26 22:02] LABS: Anion Gap 16 mmol/L (10-20); BUN (Urea Nitrogen) 32 mg/dL (7.0-18.7); Calc. Creatinine Clearance 0 mL/min (70-130); Calcium 9.2 mg/dL (7.8-10.44); Carbon Dioxide 23 mmol/L (22-29); Chloride 104 mmol/L (98-107); Glucose 282 mg/dL (70-105); Potassium 4.1 mmol/L (3.5-5.1); Sodium 139 mmol/L (136-145)
[2021-05-26 22:05] LABS: Bilirubin Negative (Negative); Blood, Urine Trace (Negative); Clarity Clear (Clear); Glucose, Urine (Dipstick) 500 mg/dL (Negative); Ketone, Urine Negative (Negative); Leukocyte Negative (Negative); Nitrite Negative (Negative); Protein, Urine (Dipstick) > or equal to 300 mg/dL (Neg-Trace); Urobilinogen 0.2 mg/dL (Less than 2); pH, Urine 8.5 (5.0-9.0)
[2021-05-26 22:08] LABS: Pregnancy Test - Urine (BHCG) Negative (Negative); Pregu Control Background? CLEAR/WHITE (CLR/WHITE); Pregu Control Bar Appear? YES (CONTROL BAR); Specific Gravity 1.014 (1.002-1.036)
[2021-05-26 22:26] LABS: RBC/HPF 0-3 HPF (0-3); WBC/HPF 0-3 HPF (0-3)
[2021-05-26 22:27] LABS: Bacteria/HPF Rare-Few HPF (None Seen); Squamous Epithelial 0-3 HPF (0-3)
== END 2021-05-26 22:38 | disposition home or self-care (01) ==
LOC: MADERS 17:16
DX: E11.65 Type 2 diabetes mellitus with hyperglycemia (principal); N17.9 Acute kidney failure, unspecified; I12.9 Hypertensive chronic kidney disease with stage 1 through stage 4 chronic kidney disease, or unspecified chronic kidney disease; N18.9 Chronic kidney disease, unspecified; I16.0 Hypertensive urgency; K21.9 Gastro-esophageal reflux disease without esophagitis; Z79.899 Other long term (current) drug therapy
CPT/HCPCS: 36415; 36416; 80053; 81003; 81015; 81025; 82330; 82803; 83605; 83690; 84703; 85025; 94760; 96372; 96374; J0500; J1815; J2405; J7120

== ENCOUNTER 2021-07-06 17:08 | Emergency (ER) | payer MEDICARE, MEDICAID ==
[2021-07-07 22:42] LABS: SARS-CoV-2 PCR by NAA Not Detected (NotDetected)
== END 2021-07-06 17:39 | disposition home or self-care (01) ==
LOC: MADERS 17:08
DX: Z20.822 Contact with and (suspected) exposure to COVID-19 (principal); I10 Essential (primary) hypertension; E11.40 Type 2 diabetes mellitus with diabetic neuropathy, unspecified; Z79.4 Long term (current) use of insulin; K21.9 Gastro-esophageal reflux disease without esophagitis
CPT/HCPCS: 99283; U0003; U0005

== ENCOUNTER 2021-09-12 19:06 | Emergency (ER) | payer MEDICARE, OTHER ==
[2021-09-12 19:50] LABS: #Basophils 0.1 thou/uL (0.0-0.2); #Eosinphils 0.2 thou/uL (0.0-0.7); #Lymphocytes 2.1 thou/uL (1.20-3.40); #Monocytes 0.4 thou/uL (0.11-0.59); #Neutrophils 2.7 thou/uL (1.40-6.50); %Basophils 1.3 % (0.0-1.0); %Eosinophils 4.2 % (0.0-10.0); %Lymphocytes 38.3 % (21.0-51.0); %Monocytes 7.2 % (0.0-10.0); %Neutrophils 49.1 % (42.0-75.0); Hemoglobin 8.5 g/dL (12.0-16.0); Mean Corpuscular HGB CONC 32.6 g/dL (32.0-36.0); Mean Corpuscular Hemoglobin 27.7 pg (27.0-31.0); Mean Corpuscular Volume 85.1 fL (78.0-98.0); Mean Platelet Volume 5.6 fL (7.4-10.4); Platelet Count 211 thou/uL (130-400); RBC Distribution Width 13.9 % (11.5-14.5); Red Blood Cell (RBC) Count 3.07 mill/uL (4.20-5.40); White Blood Cell (WBC) Count 5.5 thou/uL (4.8-10.8)
[2021-09-12 20:14] LABS: ALT (SGPT) 14 U/L (8-55); AST (SGOT) 12 U/L (5-34); Albumin 3.6 g/dL (3.5-5.0); Alkaline Phosphatase 78 U/L (40-110); Anion Gap 15 mmol/L (10-20); BUN (Urea Nitrogen) 59 mg/dL (7.0-18.7); Bilirubin, Total 0.3 mg/dL (0.2-1.2); CK (CPK) 44 U/L (29-168); Calc. Creatinine Clearance 0 mL/min (70-130); Calcium 8.9 mg/dL (7.8-10.44); Carbon Dioxide 22 mmol/L (22-29); Chloride 104 mmol/L (98-107); Globulin 2.7 g/dL (2.4-3.5); Glucose 89 mg/dL (70-105); Protein, Total 6.3 g/dL (6.0-8.3); Sodium 137 mmol/L (136-145)
[2021-09-12] MEDS ORDERED: Ondansetron PF 4 MG/2 ML Vial ONE (20:17)
[2021-09-12] MEDS ORDERED: Sodium Chloride 0.9% 1,000 ML ONE (20:17)
[2021-09-12] MEDS ORDERED: diphenhydrAMINE 50 MG/ML VIAL ONE (20:46)
== END 2021-09-12 20:37 | disposition home or self-care (01) ==
LOC: MADERS 19:06
DX: I95.1 Orthostatic hypotension (principal); N17.9 Acute kidney failure, unspecified; D64.9 Anemia, unspecified; E86.0 Dehydration; E11.22 Type 2 diabetes mellitus with diabetic chronic kidney disease; I12.9 Hypertensive chronic kidney disease with stage 1 through stage 4 chronic kidney disease, or unspecified chronic kidney disease; K21.9 Gastro-esophageal reflux disease without esophagitis; E11.40 Type 2 diabetes mellitus with diabetic neuropathy, unspecified; Z79.4 Long term (current) use of insulin; Z79.899 Other long term (current) drug therapy
CPT/HCPCS: 36416; 71045; 80053; 82010; 82550; 84484; 85025; 94760; 96374; 96375; J1200; J2405; J7050

== ENCOUNTER 2021-09-18 20:19 | Emergency (ER) | payer MEDICARE, OTHER ==
[2021-09-18 21:21] LABS: #Basophils 0.1 thou/uL (0.0-0.2); #Eosinphils 0.2 thou/uL (0.0-0.7); #Lymphocytes 1.2 thou/uL (1.20-3.40); #Monocytes 0.4 thou/uL (0.11-0.59); #Neutrophils 3.1 thou/uL (1.40-6.50); %Basophils 1.6 % (0.0-1.0); %Eosinophils 3.8 % (0.0-10.0); %Lymphocytes 24.6 % (21.0-51.0); %Monocytes 7.9 % (0.0-10.0); %Neutrophils 62.1 % (42.0-75.0); Bilirubin Negative (Negative); Blood, Urine Negative (Negative); Glucose, Urine (Dipstick) 500 mg/dL (Negative); Hemoglobin 9.2 g/dL (12.0-16.0); Ketone, Urine Negative (Negative); Leukocyte Negative (Negative); Mean Corpuscular HGB CONC 32.4 g/dL (32.0-36.0); Mean Corpuscular Hemoglobin 27.3 pg (27.0-31.0); Mean Corpuscular Volume 84.2 fL (78.0-98.0); Nitrite Negative (Negative); Platelet Count 210 thou/uL (130-400); Protein, Urine (Dipstick) > or equal to 300 mg/dL (Neg-Trace); RBC Distribution Width 13.8 % (11.5-14.5); Red Blood Cell (RBC) Count 3.36 mill/uL (4.20-5.40); Urobilinogen 0.2 mg/dL (Less than 2)
[2021-09-18 21:22] LABS: Bacteria/HPF 2+ HPF (None Seen); Clarity Hazy (Clear); RBC/HPF 0-3 HPF (0-3)
[2021-09-18 21:23] LABS: BHCG - Serum Negative (NEGATIVE); Pregs Control Background? CLEAR/WHITE (CLR/WHITE); Pregs Control Bar Appear? YES (CONTROL BAR)
[2021-09-18 21:34] LABS: ALT (SGPT) 13 U/L (8-55); AST (SGOT) 9 U/L (5-34); Albumin 3.6 g/dL (3.5-5.0); Alcohol Less than 10 mg/dL (Less than 10); Alkaline Phosphatase 68 U/L (40-110); Anion Gap 16 mmol/L (10-20); BUN (Urea Nitrogen) 57 mg/dL (7.0-18.7); Bilirubin, Total 0.4 mg/dL (0.2-1.2); Calc. Creatinine Clearance 0 mL/min (70-130); Calcium 8.8 mg/dL (7.8-10.44); Carbon Dioxide 18 mmol/L (22-29); Chloride 103 mmol/L (98-107); Glucose 332 mg/dL (70-105); Potassium 4.4 mmol/L (3.5-5.1); Protein, Total 6.6 g/dL (6.0-8.3); Sodium 133 mmol/L (136-145)
[2021-09-18 21:35] LABS: Amphetamine Not Detected (NotDetected); Barbiturates Screen Not Detected (NotDetected); Benzodiazepine Screen Not Detected (NotDetected); Cocaine Metabolite Screen Not Detected (NotDetected); Methadone Not Detected (NotDetected); Methamphetamine Not Detected (NotDetected); Opiate Screen Not Detected (NotDetected); Oxycodone Screen Not Detected (NotDetected); Phencyclidine (PCP) Not Detected (NotDetected); THC/Cannabinoid Screen Not Detected (NotDetected); Tricyclic Screen Not Detected (NotDetected)
[2021-09-18 21:36] LABS: Base Excess-Venous -4.7 mmol/L (-2.0 to 3.0); Bicarbonate (HCO3v) 17.8 mmol/L (22.0-28.0); CO2 Tension (PvCO2) 24.4 mmHg (42.0-51.0); Calcium, Ionized 0.95 mmol/L (1.15-1.33); Chloride 103 mmol/L (98-107); Hemoglobin - Calc 9.4 g/dL (12.0-16.0); Medtox Control Line Valid? VALID (VALID); Potassium 4.1 mmol/L (3.5-5.1); Sodium 131 mmol/L (138-145); T. Carbon Dioxide 18.6 mmol/L (22.0-28.0); vO2 Saturation-calc 99.8 % (60.0-85.0)
[2021-09-18] MEDS ORDERED: Cephalexin 500 MG CAP ONE (22:36)
== END 2021-09-18 23:20 | disposition home or self-care (01) ==
LOC: MADERS 20:19
DX: N30.90 Cystitis, unspecified without hematuria (principal); R41.82 Altered mental status, unspecified; E86.0 Dehydration; E11.9 Type 2 diabetes mellitus without complications; D64.9 Anemia, unspecified; E11.22 Type 2 diabetes mellitus with diabetic chronic kidney disease; N18.9 Chronic kidney disease, unspecified
CPT/HCPCS: 36416; 70450; 80053; 80306; 80307; 81003; 81015; 82010; 82330; 82803; 84484; 84703; 85025; 87077; 87086; 87186; 93005

== ENCOUNTER 2021-11-20 08:35 | Outpatient (CLI) | payer MEDICARE, OTHER ==
[2021-11-20 09:01] LABS: #Basophils 0.1 thou/uL (0.0-0.2); #Lymphocytes 1.7 thou/uL (1.20-3.40); #Monocytes 0.8 thou/uL (0.11-0.59); #Neutrophils 9.2 thou/uL (1.40-6.50); %Basophils 0.6 % (0.0-1.0); %Eosinophils 0.2 % (0.0-10.0); %Lymphocytes 14.4 % (21.0-51.0); %Monocytes 6.4 % (0.0-10.0); %Neutrophils 78.4 % (42.0-75.0); Hemoglobin 7.8 g/dL (12.0-16.0); Mean Corpuscular HGB CONC 30.7 g/dL (32.0-36.0); Mean Corpuscular Hemoglobin 27.3 pg (27.0-31.0); Mean Corpuscular Volume 88.9 fL (78.0-98.0); Mean Platelet Volume 8.8 fL (7.4-10.4); Platelet Count 184 thou/uL (130-400); RBC Distribution Width 14.4 % (11.5-14.5); Red Blood Cell (RBC) Count 2.88 mill/uL (4.20-5.40); White Blood Cell (WBC) Count 11.7 thou/uL (4.8-10.8)
[2021-11-20 17:06] LABS: HBSAB Concentration Less than 8.00 mIU/mL; Hep B Core Total Ab Non-Reactive (NonReactive); Hep B Core Total Index 0.09 S/CO (0-0.79); Hep B Surf AB Non-Reactive (NonReactive); Hep B Surf Ag Non-Reactive S/CO (NonReactive)
== END 2021-11-20 08:36 | disposition home or self-care (01) ==
LOC: MADLAB 08:35
PROVIDERS: ATTEND Internal Medicine Nephrology
DX: N18.6 End stage renal disease (principal)
CPT/HCPCS: 36415; 71046; 85025; 86704; 86706; 87340

== ENCOUNTER 2021-12-01 20:03 | Emergency (ER) | payer MEDICARE, OTHER | END 2021-12-01 21:13 | disposition home or self-care (01) | LOC: MADERS 20:03 | DX: S90.422A Blister (nonthermal), left great toe, initial encounter (principal); S90.425A Blister (nonthermal), left lesser toe(s), initial encounter; E11.40 Type 2 diabetes mellitus with diabetic neuropathy, unspecified; Z79.899 Other long term (current) drug therapy; Z79.4 Long term (current) use of insulin; K21.9 Gastro-esophageal reflux disease without esophagitis; E11.22 Type 2 diabetes mellitus with diabetic chronic kidney disease; I12.9 Hypertensive chronic kidney disease with stage 1 through stage 4 chronic kidney disease, or unspecified chronic kidney disease; N18.9 Chronic kidney disease, unspecified; Z99.2 Dependence on renal dialysis | CPT/HCPCS: 99282 ==

== ENCOUNTER 2022-07-18 18:10 | Inpatient (IN) | payer OTHER ==
[2022-07-18] MEDS ORDERED: Docusate 100 MG CAP PO PRN (20:00)
[2022-07-18] MEDS ORDERED: EPOETIN ALFA-EPBX (ESRD) 10,000 UNIT/ML VIAL SC SCH (20:00)
[2022-07-18] MEDS ORDERED: Dextrose 5% in Water 1,000 ML IV PRN (20:15)
[2022-07-18] MEDS ORDERED: hydrALAZINE 25 MG TAB PO PRN (20:17)
[2022-07-18] MEDS ORDERED: Metoprolol Tartrate 50 MG TAB PO SCH (21:00)
[2022-07-18] MEDS: Amitriptyline HCl 25 MG TAB PO SCH (21:24)
[2022-07-18] MEDS: levETIRAcetam 500 MG TAB PO SCH (21:24)
[2022-07-18] MEDS: traZODone HCl 50 MG TAB PO SCH (21:24)
[2022-07-18] MEDS: NIFEdipine XL 30 MG TAB PO SCH (21:24)
[2022-07-18] MEDS: Atorvastatin Calcium 40 MG TAB PO SCH (21:25)
[2022-07-18] MEDS: Acetaminophen 325 MG TAB PO SCH (21:25)
[2022-07-18] MEDS: Labetalol HCl 100 MG TAB PO SCH (21:26)
[2022-07-18 21:52] VITALS: BMI 21.6
[2022-07-18 23:07] LABS: SARS-CoV-2 NAA Rapid Test DETECTED (NotDetected)
[2022-07-19] MEDS ORDERED: [UNRECOGNIZED DRUG - REMARK] IVPB SCH (01:00)
[2022-07-19] MEDS: Lantus 1000 UNITS/10 ML VIAL SC SCH (08:28)
[2022-07-19] MEDS: levETIRAcetam 500 MG TAB PO SCH ×2 (08:29→20:58)
[2022-07-19] MEDS: NIFEdipine XL 30 MG TAB PO SCH ×2 (08:29→20:59)
[2022-07-19] MEDS: Labetalol HCl 100 MG TAB PO SCH ×2 (08:29→20:57)
[2022-07-19] MEDS: Aspirin 81 mg Enteric Coated Tablet PO SCH (08:29)
[2022-07-19] MEDS: Folic Acid 1 MG TAB PO SCH (08:30)
[2022-07-19] MEDS: Acetaminophen 325 MG TAB PO SCH ×4 (08:30→21:46)
[2022-07-19] MEDS: HumaLOG 300 UNITS/3 ML VIAL SC PRN ×2 (08:31→12:39)
[2022-07-19] MEDS: HYDROcodone/Acetaminophen 5/325 mg Tablet PO PRN (11:22)
[2022-07-19] MEDS: Amitriptyline HCl 25 MG TAB PO SCH (20:55)
[2022-07-19] MEDS: Atorvastatin Calcium 40 MG TAB PO SCH (20:57)
[2022-07-19] MEDS: traZODone HCl 50 MG TAB PO SCH (21:00)
[2022-07-20 07:59] LABS: Vancomycin, Random 19.1 ug/mL (See Comment)
[2022-07-20] MEDS: NIFEdipine XL 30 MG TAB PO SCH ×2 (08:14→21:54)
[2022-07-20] MEDS: levETIRAcetam 500 MG TAB PO SCH ×2 (08:14→21:54)
[2022-07-20] MEDS: Acetaminophen 325 MG TAB PO SCH ×3 (08:14→17:32)
[2022-07-20] MEDS: Aspirin 81 mg Enteric Coated Tablet PO SCH (08:14)
[2022-07-20] MEDS: Lantus 1000 UNITS/10 ML VIAL SC SCH (08:15)
[2022-07-20] MEDS: Folic Acid 1 MG TAB PO SCH (08:15)
[2022-07-20] MEDS: Labetalol HCl 100 MG TAB PO SCH ×2 (08:15→21:51)
[2022-07-20] MEDS: HumaLOG 300 UNITS/3 ML VIAL SC PRN ×3 (08:17→21:55)
[2022-07-20] MEDS ORDERED: Vancomycin HCl 500 MG in Sodium Chloride 0.9% 100 ML IVPB SCH (17:00)
[2022-07-20] MEDS ORDERED: Gentamicin Sulfate 80 MG in Premix Bag 1 BAG IVPB SCH (20:15)
[2022-07-20] MEDS: traZODone HCl 50 MG TAB PO SCH (21:53)
[2022-07-20] MEDS: Atorvastatin Calcium 40 MG TAB PO SCH (21:53)
[2022-07-20] MEDS: Amitriptyline HCl 25 MG TAB PO SCH (21:55)
[2022-07-21 05:36] LABS: #Basophils 0.1 thou/uL (0.0-0.2); #Eosinphils 0.4 thou/uL (0.0-0.7); #Lymphocytes 1.4 thou/uL (1.20-3.40); #Monocytes 0.7 thou/uL (0.11-0.59); #Neutrophils 4.9 thou/uL (1.40-6.50); %Basophils 0.9 % (0.0-1.0); %Eosinophils 5.8 % (0.0-10.0); %Lymphocytes 18.9 % (21.0-51.0); %Monocytes 8.6 % (0.0-10.0); %Neutrophils 65.9 % (42.0-75.0); Hemoglobin 7.6 g/dL (12.0-16.0); Mean Corpuscular Hemoglobin 30.5 pg (27.0-31.0); Mean Corpuscular Volume 89.7 fl (78.0-98.0); Platelet Count 185 10x3/uL (130-400); RBC Distribution Width 15.2 % (11.5-14.5); Red Blood Cell (RBC) Count 2.49 mill/uL (4.20-5.40); White Blood Cell (WBC) Count 7.5 10x3/uL (4.8-10.8)
[2022-07-21] MEDS ORDERED: EPOETIN ALFA-EPBX (ESRD) 10,000 UNIT/ML VIAL SC SCH (09:00)
[2022-07-21] MEDS: levETIRAcetam 500 MG TAB PO SCH ×2 (10:23→20:22)
[2022-07-21] MEDS: Folic Acid 1 MG TAB PO SCH (10:24)
[2022-07-21] MEDS: NIFEdipine XL 30 MG TAB PO SCH ×2 (10:24→20:22)
[2022-07-21] MEDS: Aspirin 81 mg Enteric Coated Tablet PO SCH (10:24)
[2022-07-21] MEDS: Labetalol HCl 100 MG TAB PO SCH ×2 (10:25→20:23)
[2022-07-21] MEDS: Lantus 1000 UNITS/10 ML VIAL SC SCH (10:28)
[2022-07-21] MEDS: Amitriptyline HCl 25 MG TAB PO SCH (20:22)
[2022-07-21] MEDS: traZODone HCl 50 MG TAB PO SCH (20:22)
[2022-07-21] MEDS: Atorvastatin Calcium 40 MG TAB PO SCH (20:22)
[2022-07-22 07:46] LABS: Vancomycin, Random 27.4 ug/mL (See Comment)
[2022-07-22] MEDS: HYDROcodone/Acetaminophen 5/325 mg Tablet PO PRN (08:14)
[2022-07-22] MEDS: levETIRAcetam 500 MG TAB PO SCH ×2 (08:15→20:07)
[2022-07-22] MEDS: Aspirin 81 mg Enteric Coated Tablet PO SCH (08:15)
[2022-07-22] MEDS: Folic Acid 1 MG TAB PO SCH (08:15)
[2022-07-22] MEDS: NIFEdipine XL 30 MG TAB PO SCH ×2 (08:15→20:09)
[2022-07-22] MEDS: Labetalol HCl 100 MG TAB PO SCH ×2 (08:15→20:08)
[2022-07-22] MEDS: Lantus 1000 UNITS/10 ML VIAL SC SCH (08:16)
[2022-07-22] MEDS: HumaLOG 300 UNITS/3 ML VIAL SC PRN ×2 (08:17→17:11)
[2022-07-22] MEDS: Acetaminophen 325 MG TAB PO PRN (20:06)
[2022-07-22] MEDS: Atorvastatin Calcium 40 MG TAB PO SCH (20:08)
[2022-07-22] MEDS: traZODone HCl 50 MG TAB PO SCH (20:08)
[2022-07-22] MEDS: Amitriptyline HCl 25 MG TAB PO SCH (20:08)
[2022-07-23] MEDS: HYDROcodone/Acetaminophen 5/325 mg Tablet PO PRN ×2 (07:31→22:08)
[2022-07-23] MEDS: Folic Acid 1 MG TAB PO SCH (09:37)
[2022-07-23] MEDS: levETIRAcetam 500 MG TAB PO SCH ×2 (09:37→20:49)
[2022-07-23] MEDS: NIFEdipine XL 30 MG TAB PO SCH ×2 (09:37→20:49)
[2022-07-23] MEDS: Aspirin 81 mg Enteric Coated Tablet PO SCH (09:37)
[2022-07-23] MEDS: Labetalol HCl 100 MG TAB PO SCH ×2 (09:38→20:50)
[2022-07-23] MEDS: Lantus 1000 UNITS/10 ML VIAL SC SCH (09:39)
[2022-07-23] MEDS: Dextrose 50% Abboject 50 ML SYRINGE IVP PRN ×2 (17:25→18:25)
[2022-07-23 18:14] LABS: Glucose 25 mg/dL (70-105)
[2022-07-23] MEDS: Atorvastatin Calcium 40 MG TAB PO SCH (20:49)
[2022-07-23] MEDS: traZODone HCl 50 MG TAB PO SCH (20:49)
[2022-07-23] MEDS: Amitriptyline HCl 25 MG TAB PO SCH (20:50)
[2022-07-24] MEDS: HYDROcodone/Acetaminophen 5/325 mg Tablet PO PRN ×2 (06:11→17:22)
[2022-07-24 08:11] LABS: #Basophils 0.1 thou/uL (0.0-0.2); #Eosinphils 0.2 thou/uL (0.0-0.7); #Lymphocytes 0.9 thou/uL (1.20-3.40); #Monocytes 0.7 thou/uL (0.11-0.59); #Neutrophils 7.2 thou/uL (1.40-6.50); %Basophils 1.1 % (0.0-1.0); %Eosinophils 2.3 % (0.0-10.0); %Lymphocytes 9.8 % (21.0-51.0); %Monocytes 7.2 % (0.0-10.0); %Neutrophils 79.6 % (42.0-75.0); Hemoglobin 8.1 g/dL (12.0-16.0); Mean Corpuscular Hemoglobin 30.9 pg (27.0-31.0); Mean Corpuscular Volume 88.4 fl (78.0-98.0); Mean Platelet Volume 7.1 fL (7.4-10.4); Platelet Count 176 10x3/uL (130-400); Red Blood Cell (RBC) Count 2.61 mill/uL (4.20-5.40); White Blood Cell (WBC) Count 9.1 10x3/uL (4.8-10.8)
[2022-07-24 08:29] LABS: ALT (SGPT) 50 U/L (8-55); AST (SGOT) 44 U/L (5-34); Albumin 3.2 g/dL (3.5-5.0); Alkaline Phosphatase 90 U/L (40-110); Anion Gap 21 mmol/L (10-20); BUN (Urea Nitrogen) 81 mg/dL (7.0-18.7); Bilirubin, Total 0.5 mg/dL (0.2-1.2); Calc. Creatinine Clearance 10 mL/min (70-130); Calcium 9.5 mg/dL (7.8-10.44); Carbon Dioxide 23 mmol/L (22-29); Chloride 96 mmol/L (98-107); Estimated GFR 7; Globulin 3.5 g/dL (2.4-3.5); Glucose 257 mg/dL (70-105); Potassium 5.4 mmol/L (3.5-5.1); Protein, Total 6.7 g/dL (6.0-8.3); Sodium 135 mmol/L (136-145)
[2022-07-24] MEDS: NIFEdipine XL 30 MG TAB PO SCH ×2 (08:39→22:12)
[2022-07-24] MEDS: Folic Acid 1 MG TAB PO SCH (08:39)
[2022-07-24] MEDS: Labetalol HCl 100 MG TAB PO SCH ×2 (08:39→22:13)
[2022-07-24] MEDS: levETIRAcetam 500 MG TAB PO SCH ×2 (08:40→22:13)
[2022-07-24] MEDS: Aspirin 81 mg Enteric Coated Tablet PO SCH (08:40)
[2022-07-24] MEDS: Acetaminophen 325 MG TAB PO PRN (09:28)
[2022-07-24] MEDS ORDERED: HumaLOG 300 UNITS/3 ML VIAL SC SCH (21:30)
[2022-07-24] MEDS: Atorvastatin Calcium 40 MG TAB PO SCH (22:12)
[2022-07-24] MEDS: Amitriptyline HCl 25 MG TAB PO SCH (22:12)
[2022-07-24] MEDS: traZODone HCl 50 MG TAB PO SCH (22:13)
[2022-07-25] MEDS: HYDROcodone/Acetaminophen 5/325 mg Tablet PO PRN ×2 (06:10→16:14)
[2022-07-25] MEDS: Aspirin 81 mg Enteric Coated Tablet PO SCH (08:56)
[2022-07-25] MEDS: Folic Acid 1 MG TAB PO SCH (08:56)
[2022-07-25] MEDS: NIFEdipine XL 30 MG TAB PO SCH ×2 (08:57→22:20)
[2022-07-25] MEDS: levETIRAcetam 500 MG TAB PO SCH ×2 (08:57→22:20)
[2022-07-25] MEDS: Labetalol HCl 100 MG TAB PO SCH ×2 (08:57→22:42)
[2022-07-25] MEDS: HumaLOG 300 UNITS/3 ML VIAL SC PRN (12:32)
[2022-07-25] MEDS: Acetaminophen 325 MG TAB PO PRN (15:35)
[2022-07-25] MEDS: Atorvastatin Calcium 40 MG TAB PO SCH (22:14)
[2022-07-25] MEDS: Amitriptyline HCl 25 MG TAB PO SCH (22:21)
[2022-07-25] MEDS: traZODone HCl 50 MG TAB PO SCH (22:21)
[2022-07-26] MEDS: HYDROcodone/Acetaminophen 5/325 mg Tablet PO PRN ×2 (01:54→18:38)
[2022-07-26] MEDS: NIFEdipine XL 30 MG TAB PO SCH ×2 (09:11→19:56)
[2022-07-26] MEDS: levETIRAcetam 500 MG TAB PO SCH ×2 (09:11→19:55)
[2022-07-26] MEDS: Labetalol HCl 100 MG TAB PO SCH ×2 (09:11→19:55)
[2022-07-26] MEDS: Aspirin 81 mg Enteric Coated Tablet PO SCH (09:11)
[2022-07-26] MEDS: Folic Acid 1 MG TAB PO SCH (09:11)
[2022-07-26] MEDS: HumaLOG 300 UNITS/3 ML VIAL SC PRN ×2 (09:15→21:32)
[2022-07-26] MEDS: Amitriptyline HCl 25 MG TAB PO SCH (19:57)
[2022-07-26] MEDS: Atorvastatin Calcium 40 MG TAB PO SCH (19:57)
[2022-07-26] MEDS: traZODone HCl 50 MG TAB PO SCH (19:57)
[2022-07-26] MEDS: Polyethylene Glycol 3350 17 GM Packet PO SCH (19:57)
[2022-07-26] MEDS: Milk Of Magnesia 30 ML UDCUP PO SCH (19:58)
[2022-07-27] MEDS: levETIRAcetam 500 MG TAB PO SCH (08:08)
[2022-07-27] MEDS: Polyethylene Glycol 3350 17 GM Packet PO SCH (08:08)
[2022-07-27] MEDS: Milk Of Magnesia 30 ML UDCUP PO SCH (08:08)
[2022-07-27] MEDS: Folic Acid 1 MG TAB PO SCH (08:09)
[2022-07-27] MEDS: NIFEdipine XL 30 MG TAB PO SCH (08:10)
[2022-07-27] MEDS: Labetalol HCl 100 MG TAB PO SCH (08:10)
[2022-07-27] MEDS: HumaLOG 300 UNITS/3 ML VIAL SC PRN (08:11)
[2022-07-27] MEDS: Aspirin 81 mg Enteric Coated Tablet PO SCH (08:11)
[2022-07-27 09:15] VITALS: BP 125/57; TEMP 98.4
== END 2022-07-27 16:30 | disposition short-term general hospital (02) | DRG 637 ==
LOC: MADMS 18:10
PROVIDERS: ADMIT Family Medicine; ATTEND Family Medicine
PROC: 8E0ZXY6 Isolation (ICD-10-PCS; principal; 2022-07-18)
DX: E10.69 Type 1 diabetes mellitus with other specified complication (principal); U07.1 COVID-19; M86.171 Other acute osteomyelitis, right ankle and foot; L97.419 Non-pressure chronic ulcer of right heel and midfoot with unspecified severity; R18.8 Other ascites; I12.0 Hypertensive chronic kidney disease with stage 5 chronic kidney disease or end stage renal disease; L03.115 Cellulitis of right lower limb; J90 Pleural effusion, not elsewhere classified; E10.628 Type 1 diabetes mellitus with other skin complications; N18.6 End stage renal disease; E10.649 Type 1 diabetes mellitus with hypoglycemia without coma; G40.909 Epilepsy, unspecified, not intractable, without status epilepticus; E10.22 Type 1 diabetes mellitus with diabetic chronic kidney disease; H54.8 Legal blindness, as defined in USA; K21.9 Gastro-esophageal reflux disease without esophagitis; D63.1 Anemia in chronic kidney disease; R53.81 Other malaise; E87.70 Fluid overload, unspecified; K59.00 Constipation, unspecified; Z88.0 Allergy status to penicillin; Z88.8 Allergy status to other drugs, medicaments and biological substances; Z91.15 Patient's noncompliance with renal dialysis; Z98.890 Other specified postprocedural states; Z91.14 Patient's other noncompliance with medication regimen; Z99.2 Dependence on renal dialysis; Z89.431 Acquired absence of right foot; Z79.82 Long term (current) use of aspirin; Z79.4 Long term (current) use of insulin; Z79.899 Other long term (current) drug therapy
CPT/HCPCS: 36415; 36416; 74150; 76705; 80053; 80177; 80202; 82947; 85025; J1611; J1815; J3370; J3490; J7999; Q5105; U0002